=== PATIENT | male | born 1990 | race Caucasian/White ===

== ENCOUNTER 2020-07-27 23:05 | Emergency (ER) | payer SELFPAY ==
[2020-07-27] MEDS ORDERED: Cephalexin 500 MG Cap PO STA (23:31)
--- NOTE | 2020-07-27 23:39 | EDM.PDOC ---
ED HPI GENERAL MEDICAL PROBLEM - General Chief Complaint: ENT Problem Stated Complaint: EAR PAIN Time Seen by Provider: 07/27/20 23:16 Source of Information: Reports: Patient History Limitations: Reports: No Limitations - History of Present Illness INITIAL COMMENTS - FREE TEXT/NARRATIVE: Mr. Pimentel is a pleasant 30-year-old gentleman who now presents to the ED with left ear pain and swelling. He states that he discovered a pimple to the outer most portion of his left ear canal, and that his mother popped it night, 07/23/2020. He noticed left ear swelling yesterday morning, and had pain by yesterday afternoon. No recent fever. He has not attempted any [id number] or home remedies or treatments. Here in the ED, the patient's initial BP is found to be modestly elevated at 153/98, otherwise, he is hemodynamically stable, afebrile, saturating 100% on room air. Other than his left ear issue, the patient denies having a recent fever, chills, sore throat, ear pain, nasal or sinus congestion, cough, dyspnea, chest pain, palpitations, nausea, vomiting, constipation, diarrhea, abdominal pain, urinary symptoms, recent weight gain or weight loss, recent bloody bowel movements or black bowel movements, recent joint aches, headaches, or rashes. Patient does not recall the name of his PCP in [place]. He has not received an influenza vaccine this season, and declined an offer to receive one here in the ED. Left Ear Pain Score (Numeric/FACES): 7 - Related Data Allergies Allergy/AdvReac Type Severity Reaction Status Date / Time No Known Allergies Allergy Verified 07/27/20 23:19 Home Meds: Home Meds . [No Known Home Meds] 07/27/20 [History] Past Medical History Musculoskeletal History: Reports: Fracture (ribs, right ankle) - Past Surgical History HEENT Surgical History: Reports: Oral Surgery (dental extractions) Social & Family History - Tobacco Use Tobacco Use Status *Q: Never Tobacco User Tobacco Use Within Last Twelve Months: Smokeless Tobacco (Chews on occasion) - Alcohol Use Alcohol Use History: Yes Alcohol Use Frequency: Socially - Recreational Drug Use Recreational Drug Use: No - Living Situation & Occupation Living situation: Reports: Single, Alone Occupation: Employed (Self-employed) ED ROS ENT - Review of Systems Review Of Systems: Comprehensive ROS is negative, except as noted in HPI. ED EXAM, ENT - Physical Exam Exam: See Below Exam Limited By: No Limitations General Appearance: Alert, WD/WN, No Apparent Distress Eye Exam: Bilateral Eye: EOMI, Normal Inspection Ears: Hearing Grossly Normal, Normal TMs, Other (Erythema and swelling to the left ear canal, particularly at the inferior aspect, outer most portion. The area of swelling is very slightly fluctuant, but I do not appreciate a pus pocket suitable for incision and drainage. Very minimal erythema/swelling to the left earlobe.) Nose: Normal Inspection Mouth/Throat: Normal Inspection, Normal Lips Head: Atraumatic, Normocephalic Course - Vital Signs Last Recorded V/S: Last Vital Signs Temp 36.3 C 07/27/20 23:16 Pulse 70 07/27/20 23:16 Resp 16 07/27/20 23:16 BP 153/98 H 07/27/20 23:16 Pulse Ox 100 07/27/20 23:16 - Orders/Labs/Meds Meds: Medications Discontinued Medications Generic Name Dose Route Start Last Admin Trade Name Freq PRN Reason Stop Dose Admin Cephalexin 500 mg 07/27/20 23:31 Keflex PO 07/27/20 23:32 ONETIME STA - Re-Assessments/Exams Free Text/Narrative Re-Assessment/Exam: 07/27/20 23:32 The patient appears to have cellulitis of the uppermost portion of his left ear canal. The area of swelling is soft, but I do not know that it is actually fluctuant enough to warrant attempt at drainage. I would prefer to treat as a cellulitis, therefore I will start him on Keflex, and prescribe an [facility] prescription of the same. He should apply warm compresses to the area to encourage circulation. If the area is not improving within about 5 days, I would like him to follow-up with a PCP. Departure - Departure Time of Disposition: 23:33 Disposition: Home, Self-Care 01 Condition: Good Clinical Impression: Cellulitis of left ear canal - Discharge Information *PRESCRIPTION DRUG MONITORING PROGRAM REVIEWED*: Not Applicable *COPY OF PRESCRIPTION DRUG MONITORING REPORT IN PATIENT SHALINI: Not Applicable Instructions: Cellulitis, Adult, [id number] Referrals: PCP,None [Primary Care Provider] - Forms: ED Department Discharge Additional Instructions: You were seen in the emergency room for painful swelling of your left ear after a pimple was popped in it evening. Based on your history and physical examination, you are suffering from cellulitis of the left ear canal. You have been started on the antibiotic Keflex, and a prescription for Keflex has been provided to you via [facility]. Take 1 tablet of Keflex every 6 hours, as prescribed. Finish the entire prescription unless told otherwise by a doctor. We recommend that you apply warm compresses to your left ear for 10 to 15 minutes, up to 5 times a day, to help with circulation. If your left ear has not significantly improved after 5 days, we recommend that you follow-up with your PCP in [place]. If any other problems, please do not hesitate to return to the ER. Sepsis Event Note (ED) - Evaluation Sepsis Screening Result: No Definite Risk - Focused Exam Vital Signs: Vital Signs Temp Pulse Resp BP Pulse Ox 07/27/20 23:16 36.3 C 70 16 153/98 H 100
== END 2020-07-27 23:45 | disposition home or self-care (01) ==
LOC: JD.ED 23:05
DX: H60.12 Cellulitis of left external ear (principal); F17.220 Nicotine dependence, chewing tobacco, uncomplicated
CPT/HCPCS: 99282

== ENCOUNTER 2023-03-27 22:56 | Emergency (ER) | payer OTHER ==
[2023-03-27] MEDS ORDERED: Ketorolac 0.5% Ophth Soln 5 ML Bottle EYERT ONE (23:33)
[2023-03-27] MEDS ORDERED: Ciprofloxacin 0.3% Ophth Soln 5 ML Bottle EYERT ONE (23:34)
[2023-03-27] MEDS ORDERED: Ibuprofen 600 MG Tab PO ONE (23:56)
[2023-03-27] MEDS ORDERED: Acetaminophen 325 MG Tab PO ONE (23:56)
== END 2023-03-28 00:04 | disposition home or self-care (01) ==
LOC: JD.ED 22:56
DX: S05.01XA Injury of conjunctiva and corneal abrasion without foreign body, right eye, initial encounter (principal); W22.09XA Striking against other stationary object, initial encounter
CPT/HCPCS: 99283; A9270